=== PATIENT | male | born 1965 | race Caucasian/White ===

== ENCOUNTER 2022-07-20 08:39 | Outpatient (RCR) | payer OTHER, SELFPAY | END 2022-07-20 16:54 | disposition home or self-care (01) | LOC: PT 08:39 | PROVIDERS: PCP Family Medicine; Visit Provider Family Medicine | DX: M54.9 Dorsalgia, unspecified (principal) ==

== ENCOUNTER 2024-05-27 14:27 | Outpatient (OUT) | payer OTHER, SELFPAY ==
--- NOTE | 2024-05-27 14:37 | MR_ITS ---
The [address] [address] Patient Name: PAM RUBI MRN: [id number] date: 1965 Sex: M Assigned Patient Location: LAB Current Patient Location: LAB Accession/Order Number: [id number] Exam Date: 05/27/2024 16:40 Report Date: 05/27/2024 16:47 At the request of: YOJANA HALE MD Procedure: MR head/brain wo/w con MRI the Brain with and without contrast TECHNIQUE: Multiplanar T1 and T2-weighted imaging of the brain. 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 COMPARISON: none VENTRICLES: Unremarkable BRAIN VOLUME: Adequate volume of brain parenchyma identified. BRAIN PARENCHYMAL SIGNAL INTENSITY: Scattered foci of increased T2/FLAIR signal intensity of the brain parenchyma is consistent with chronic small vessel ischemic changes. BLEED: None MASS EFFECT: No mass effect DIFFUSION RESTRICTION: None GRADIENT ECHO PARENCHYMAL SIGNAL LOSS: None MIDBRAIN: The midbrain structures are unremarkable. KANDACE: Unremarkable MEDULLA: Unremarkable INTERNAL AUDITORY CANALS: Symmetric IACs. No worrisome vascular loop. No mass within the canal or cerebellopontine angle. Adequate: Similar and semicircular canals. No pathologic enhancement. SINUSES: Unremarkable ORBITS: Grossly unremarkable MASTOIDS: Unremarkable ENHANCEMENT: No pathologic enhancement. MR/MR head/brain wo/w con IMPRESSION: Unremarkable MRI the brain with and without contrast Symmetric IACs. No worrisome mass within the canal or cerebellopontine angle. No abnormal enhancement to suggest uropathy. Impression dictated by: John Escalante M.D.05/27/2024 4:47 PM Dictation Location: [place] [address] Electronically authenticated by: [id number] Y Date: 05/27/2024 16:47
--- NOTE | 2024-05-27 15:00 | XR_ITS ---
The [address] [address] Patient Name: PAM RUBI MRN: [id number] date: 1965 Sex: M Assigned Patient Location: LAB Current Patient Location: LAB Accession/Order Number: [id number] Exam Date: 05/27/2024 15:23 Report Date: 05/27/2024 15:25 At the request of: YOJANA HALE MD Procedure: XR foreign body eye KAROL Plain film imaging of the orbits to assess for a metallic foreign body. HISTORY: Pre-MRI screening No orbital metallic foreign body identified. XR/XR foreign body eye KAROL IMPRESSION: No metallic foreign body of the orbits. Impression dictated by: John Escalante M.D.05/27/2024 3:25 PM Dictation Location: [place] [address] Electronically authenticated by: [id number] Y Date: 05/27/2024 15:25
[2024-05-27 15:24] LABS: Estimated GFR (African America >60 (>=60 mL/min/1.73m^2); Estimated GFR (Non-African Ame 57 (>=60 mL/min/1.73m^2)
== END 2024-05-27 14:28 | disposition home or self-care (01) ==
LOC: LAB 14:28
PROVIDERS: PCP Family Medicine; Visit Provider Otolaryngology
DX: H90.42 Sensorineural hearing loss, unilateral, left ear, with unrestricted hearing on the contralateral side (principal); H93.12 Tinnitus, left ear
CPT/HCPCS: 36415; 70030; 70553; 82565; A9575